=== PATIENT | female | born 1990 | race Hispanic/Latino ===

== ENCOUNTER 2017-08-10 16:01 | Emergency (ER) | payer SELFPAY ==
[~2017-08-10] VITALS: Ht 157.5 cm; Wt 100.0 kg
[2017-08-10] MEDS ORDERED: BACTRIM DS1 TAB PO (17:27)
[2017-08-10] MEDS ORDERED: IBUPROFEN600 MG PO (17:27)
[2017-08-10] MEDS ORDERED: NORCO1 TA1 PO (17:27)
[2017-08-10] MEDS ORDERED: KEFLEX500 M1 PO (17:28)
[2017-08-10 18:00] VITALS: BP 131/77
== END 2017-08-10 18:00 | disposition home or self-care (01) | DRG 603 ==
LOC: ED 16:01
PROC: 0H9JXZZ Drainage of Left Upper Leg Skin, External Approach (ICD-10-PCS; principal; 2017-08-10)
DX: L02.416 Cutaneous abscess of left lower limb (principal); B95.62 Methicillin resistant Staphylococcus aureus infection as the cause of diseases classified elsewhere; L03.116 Cellulitis of left lower limb